=== PATIENT | female | born 2000 | race Two or more races ===

== ENCOUNTER 2023-04-06 17:42 | Outpatient (REF) | payer MEDICAID, SELFPAY ==
[2023-04-06 17:57] LABS: Appearance Urine Clear; Color Urine Yellow; Glucose Urine UA Negative (Negative); Leukocyte Esterase Urine Trace (Negative); Nitrite Urine Negative (Negative); PH 5.5 (5.0-9.0); Specific Gravity - Urine 1.025 (1.005-1.025); UMIC TRIGGER UACC YES; Urine Blood Large (3+) (Negative); Urine Ketones 40 mg/dL (Negative); Urine Protein Negative (Neg-Trace)
[2023-04-06 17:59] LABS: Bacteria Urine 1+ (None Seen); Hyaline Casts Urine 0-2 /LPF (0-2); RBC Urine >20 /HPF (0-2); WBC Urine 0-5 /HPF (0-5)
== END 2023-04-06 17:43 | disposition home or self-care (01) ==
LOC: HO.HHCLNP 17:42
PROVIDERS: Visit Provider Nurse Practitioner Primary Care
DX: R32 Unspecified urinary incontinence (principal)
CPT/HCPCS: 81001

== ENCOUNTER 2023-04-14 09:40 | Outpatient (REF) | payer MEDICAID, SELFPAY ==
[2023-04-15 08:14] LABS: ~HepC Num1 0.05 S/CO (0.00-0.79); ~Hepatitis C Antibody Nonreactive (Nonreactive)
== END 2023-04-14 09:41 | disposition home or self-care (01) ==
LOC: HO.CHCLDS 09:40
PROVIDERS: Visit Provider Nurse Practitioner Primary Care
DX: Z00.00 Encounter for general adult medical examination without abnormal findings (principal); Z11.3 Encounter for screening for infections with a predominantly sexual mode of transmission
CPT/HCPCS: 36415; 86803

== ENCOUNTER 2023-07-23 16:09 | Outpatient (REF) | payer MEDICAID, SELFPAY ==
[2023-07-25 11:45] LABS: BV Int Neg Control Negative (Negative); BV Int Pos Control Positive (Positive)
[2023-07-29 23:07] LABS: HPV mRNA E6/E7 rflx Not Detected (Not Detected)
[2023-07-29 23:29] LABS: C. trachomatis RNA TMA NOT DETECTED (NOT DETECTED); N. gonorrhoeae RNA TMA NOT DETECTED (NOT DETECTED)
[2023-07-30] LABS: Trichomonas (NAAT) NOT DETECTED (NOT DETECTED)
== END 2023-07-23 16:10 | disposition home or self-care (01) ==
LOC: HO.CHCLNP 16:09
PROVIDERS: Visit Provider Pediatrics
DX: Z01.419 Encounter for gynecological examination (general) (routine) without abnormal findings (principal)
CPT/HCPCS: 36415; 87480; 87491; 87510; 87591; 87624; 87660; 87661; 88142

== ENCOUNTER 2024-01-21 09:27 | Outpatient (REF) | payer MEDICAID, SELFPAY | END 2024-01-21 09:28 | disposition home or self-care (01) | LOC: HO.LAB 09:27 | PROVIDERS: PCP Pediatrics; Visit Provider Internal Medicine | DX: N92.6 Irregular menstruation, unspecified (principal) | CPT/HCPCS: 36415; 84702 ==

== ENCOUNTER 2024-05-08 15:19 | Emergency (ER) | payer MEDICAID, SELFPAY ==
--- NOTE | ~2024-05-08 | XR_ITS ---
EXAMINATION: XR ANKLE, RIGHT CLINICAL INFORMATION: Right ankle pain. COMPARISON: None available. TECHNIQUE: Three views of the right ankle. FINDINGS: No fracture. Alignment is anatomic. No erosions. Joint spaces are maintained. Soft tissues are normal. XR/XR ankle RT min 3V IMPRESSION: Normal right ankle. Electronically signed by: Jay Thomas MD 05/08/2024 04:47 PM EDT
[2024-05-08 15:43] VITALS: BP 111/52; PULSE 98; RESP 18; TEMP 35.9; O2SAT 100; BMI 32.1
--- NOTE | 2024-05-08 15:43 | ED_ITS ---
HPI - General Adult General Chief complaint: Extremity Injury, Lower Stated complaint: Fell down stairs - ankle injury Time Seen by Provider: 05/08/24 20:55 History of Present Illness ED Provider: Wil MENDIOLA narrative: The patient is an ordinarily healthy 23-year-old who is approximately 8 months . This is her first . The patient was going down some steps when she slipped and fell and injured her right ankle. She indicates that she has pain primarily at her right medial malleolus. She denies any other injuries. Related Data Allergies Allergy/AdvReac Type Severity Reaction Status Date / Time No Known Allergies Allergy Verified 05/08/24 15:46 Review of Systems Review of Systems: Yes all other systems are reviewed and are negative [facility] Social History Social History Advance Directives: No Advance Directives Information Provided: No Physical Exam ED Vital Signs: Vital Signs - 24 hr 05/08/24 15:43 05/08/24 20:57 Temperature 96.6 F L 97.3 F Pulse Rate 98 100 Respiratory Rate 18 18 Blood Pressure 111/52 L 99/64 Pulse Oximetry 100 99 Oxygen Delivery Method Room Air Room Air BMI result Body Mass Index 32.1 Const Other: The patient is awake and alert. She looks mildly uncomfortable. She does not appear in acute distress however. HENMT Other: No sign of trauma to the head or the face. Eyes General: appearance normal, both eyes and all related structures Neck Other: Moving her neck easily Resp Effort & Inspection: normal respiratory effort GI Other: The patient has a gravid abdomen with the uterine fundus above the umbilicus. Skin Other: There is some mild swelling to the skin of the right ankle and foot. The skin is intact. Neuro Other: The patient is awake and alert with a normal mental status. Normal sensation in the foot. Extrem Other: The patient is tender diffusely around the right ankle and foot. Maximal tenderness seems to be at the medial malleolus. No gross deformity. Course Course Course Narrative: RME, this is a rapid medical exam performed by Skip Clarke please refer to primary provider for complete H&P- 23-year-old female presents for evaluation of right ankle pain. She reports that she tripped on the last 4 steps of the stai rs. Plan for x-ray. Denies hitting her head or losing consciousness. The patient also reports that she is 8 months . She denies any abdominal pain Medical Decision Making Medical Decision Making MDM Narrative: The patient is an ordinarily healthy 23 year who was approximately 8 months pr egnant with her 1st who slipped on stairs and injured her right ankle. She has a negative x-ray. She does not have a great deal of soft tissue swelling. She will be treated as an ankle sprain with an orthopedic boot and crutches, rest and elevation, acetaminophen as needed for discomfort, follow up with her PCP and with her OB. Discharge Plan Discharge Clinical Impression: Right ankle sprain, Patient Disposition: Home, Self-Care Instructions: Ankle Sprain (ED), Crutch Instructions (ED), Walking Boot (ED) Additional Instructions: Your x-ray does not show a fracture. You seem to have a sprain of your right ankle. The management of this injury will primarily be resting and taking it easy and keeping your right foot elevated. Use the boot provided on your right leg. Use crutches to keep weight off your right foot. You may use acetaminophen (Tylenol) as needed for discomfort. Ice the ankle several times a day. Follow up with your regular doctor later this week for a recheck. Please also inform your obstetrical provider at [facility] that you have an ankle sprain. Return to the emergency room if acutely worse in any way. Referrals: Karen Hobbs MD [Primary Care Provider] - (right ankle sprain) Print Language: Armenian
[2024-05-08 20:57] VITALS: BP 99/64; PULSE 100; RESP 18; TEMP 36.3; O2SAT 99
[2024-05-08 21:23] VITALS: BP 99/64; PULSE 100; RESP 18; TEMP 36.3; O2SAT 99
== END 2024-05-08 21:23 | disposition home or self-care (01) ==
PROVIDERS: Emergency Provider Emergency Medicine; PCP Pediatrics
DX: O9A.213 Injury, poisoning and certain other consequences of external causes complicating pregnancy, third trimester (principal); S93.401A Sprain of unspecified ligament of right ankle, initial encounter; W10.9XXA Fall (on) (from) unspecified stairs and steps, initial encounter; Y93.9 Activity, unspecified; Y92.9 Unspecified place or not applicable; Y99.9 Unspecified external cause status; Z3A.00 Weeks of gestation of pregnancy not specified
CPT/HCPCS: 73610; 99283